=== PATIENT | female | born 1960 | race Caucasian/White ===

== ENCOUNTER 2016-05-25 10:11 | Emergency (ER) | payer MEDICAID ==
[~2016-05-25] VITALS: Ht 160 cm; Wt 74.8 kg
[~2016-05-25 10:11] MED LIST: ATEN50TA PO; CIPR-173 PO; GABA300C8 PO; HYDR12.527 PO; METR500T PO; SIMV20TA90 PO
[2016-05-25 10:52] VITALS: BP 133/79
[2016-05-25] MEDS ORDERED: ASPirin 81 mg TAB PO ONE (11:00)
[2016-05-25] MEDS ORDERED: ONDANSETRON HCL 4 MG/2 ML VIAL IV ONE (11:00)
[2016-05-25] MEDS ORDERED: MORPHINE SULFATE 4 MG/ML SYRG IV ONE (11:00)
[2016-05-25 11:18] LABS: Hematocrit 43.4 % (36.0-46.0); Hemoglobin 14.4 g/dL (12.2-16.2); Mean Corpuscular Hemoglobin 29.4 pg (28.0-32.0); Mean Corpuscular Hgb Conc. 33.2 g/dL (32.0-36.0); Mean Corpuscular Volume 88.7 fL (80.0-100.0); Mean Platelet Volume 10.1 fL (7.4-10.4); Platelet Count (auto) 351 10^3/uL (140-450); Red Cell Distribution Width 12.8 % (11.6-16.0); SUSPECT VIEW TRANSMISSION; White Blood Cell 7.3 10^3/uL (4.4-10.8)
[2016-05-25 11:26] LABS: Metamyelocytes % 0; Myelocytes % 0; Promyelocytes % 0; Reactive Lymphocytes 0
[2016-05-25 11:29] LABS: Partial Thromboplastin Time 23.6 sec (22.64-33.71); Prothrombin Time 10.3 sec (9.37-12.3)
[2016-05-25 11:56] LABS: Albumin 3.9 g/dL (3.4-5.0); B-Type Natriuretic Peptide 28.14 pg/mL (0-100); BUN/Creatinine Ratio 29.3; Bilirubin, Total 0.3 mg/dL (0.2-1.0); Calcium 9.4 mg/dL (8.5-10.1); Potassium 4.2 mmol/L (3.5-5.1)
[2016-05-25 12:04] LABS: Giant Platelets Few; Platelet Estimate Adequate
[2016-05-25 12:13] LABS: Temperature: 22.5 C (20.0-25.0)
== END 2016-05-25 13:07 | disposition home or self-care (01) ==
LOC: EDBD 10:11 → ER 10:19
DX: R07.89 Other chest pain (principal); E87.0 Hyperosmolality and hypernatremia; M19.90 Unspecified osteoarthritis, unspecified site; I10 Essential (primary) hypertension; J45.909 Unspecified asthma, uncomplicated; E78.5 Hyperlipidemia, unspecified; Z88.6 Allergy status to analgesic agent; Z88.1 Allergy status to other antibiotic agents; Z90.710 Acquired absence of both cervix and uterus; Z79.899 Other long term (current) drug therapy
CPT/HCPCS: 36415; 71010; 80053; 83880; 84443; 84484; 85007; 85027; 85610; 85730; 93005; 96374; 96375; 99285; J2270; J2405